=== PATIENT | male | born 2005 | race Caucasian/White ===

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

== ENCOUNTER 2024-04-12 13:43 | Emergency (ER) | payer OTHER, SELFPAY ==
[2024-04-12 13:53] VITALS: BP 113/56; PULSE 72; RESP 12; TEMP 36.4; O2SAT 96
[2024-04-12 14:19] LABS: Add Manual Diff / Slide Review NO; Basophils Absolute Auto 0 /uL (0-100); Basophils Percent Auto 0.5 % (0-2); Eosinophils Absolute Auto 200 /uL (0-450); Eosinophils Percent Auto 2.7 % (2-4); Hematocrit 43.3 % (41-53); Hemoglobin 14.5 g/dL (13.5-17.5); Lymphocytes Absolute Auto 1600 /uL (1100-4500); Lymphocytes Percent Auto 28.2 % (25-40); Mean Corpuscular HGB Conc 33.4 % (30-36); Mean Corpuscular Hemoglobin 28.6 PG (26-34); Mean Corpuscular Volume 85.8 fL (80-100); Monocytes Absolute Auto 300 /uL (0-900); Monocytes Percent Auto 5.8 % (3-14); Neutrophils Absolute Auto 3500 /uL (1500-7000); Neutrophils Percent Auto 62.8 % (50-75); Platelet Count 205 X10^3/uL (150-400); Red Blood Cell Count 5.05 X10^6/uL (4.5-5.9); Red Cell Distribution Width 13.4 % (11.6-14.8); White Blood Cell Count 5.6 X10^3/uL (4.5-11.0)
[2024-04-12 14:19] LABS: Appearance Urine UA CLEAR; Bilirubin Urine UA 1+ (NEGATIVE); Color Urine UA YELLOW; Glucose Urine UA NEGATIVE (Negative); Ketones Urine UA TRACE (NEGATIVE); Leukocyte Esterase Urine UA NEGATIVE (NEGATIVE); Nitrite Urine UA NEGATIVE (Negative); Occult Blood Urine UA NEGATIVE (Negative); Protein Urine UA 1+ (Negative); Specific Gravity Urine UA 1.025 (1.000-1.035); Urobilinogen Urine UA 0.2 E.U./dL (0.2)
[2024-04-12 14:26] LABS: Bacteria Urine None Seen; Ictotest Urine Negative (Negative); RBC Urine 0-1/HPF (0-5/HPF); Squamous Epithelial Cell Urine 0-1 /HPF (0-5/HPF); Urine Volume 10mL (spun); WBC Urine 0-1/HPF (0-5/HPF)
[2024-04-12 14:27] LABS: Culture Indicated Urine Cult Not Indicated
[2024-04-12 14:28] LABS: Alanine Aminotransferase 18 IU/L (<50); Albumin 4.2 g/dL (3.5-5.0); Albumin Globulin Ratio 1.6 (1.0-2.8); Alkaline Phosphatase 56 U/L (38-126); Aspartate Aminotransferase 32 IU/L (17-59); BUN Creatinine Ratio 15.3 (6-22); Bilirubin Total 1.3 mg/dL (0.2-1.3); Blood Urea Nitrogen 13 mg/dL (9-20); Calcium 9.1 mg/dL (8.4-10.2); Carbon Dioxide 28 mmol/L (22-32); Chloride 106 mmol/L (98-107); Estimated Glomerular Filt Rate > 60 mL/min (>60); Globulin 2.7 g/dL (1.7-4.1); Glucose 98 mg/dL (70-100); HEMOLYSIS < 15 (0-50); Lipase 42 U/L (23-300); Potassium 4.2 mmol/L (3.4-5.1); Sodium 139 mmol/L (137-145); Total Protein 6.9 g/dL (6.3-8.2)
--- NOTE | 2024-04-12 15:05 | ED.ABDPAIN ---
HPI - Abdominal Pain General Chief Complaint: Abdominal Pain Stated Complaint: abd px Time Seen by Provider: 04/12/24 14:18 Source: patient Mode of arrival: Ambulatory History of Present Illness HPI narrative: Patient is a healthy 18-year-old male who presents today with left testicular pain. He reports over last 4 days he has had increased pain and some bulging. He denies any sort of injury. He says sitting down and resting actually helps however standing makes it feel worse. 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 He reports he was not currently sexually active he denies any redness or penile discharge. He has some minimal abdominal discomfort no real flank pain. Related Data Previous Rx's Medication Instructions Recorded doxycycline hyclate 100 mg tablet 100 mg PO BID #10 tabs 12/20/23 lactulose 20 gram/30 mL oral 20 g (30 mL) PO BID #300 mL 12/20/23 solution Allergies Allergy/AdvReac Type Severity Reaction Status Date / Time No Known Drug Allergies Allergy Verified 04/12/24 13:58 Patient History Medical History (Updated 04/12/24 @ 16:49 by Vanessa Krishnamurthy DO) Testis pain Depression Idiopathic scoliosis of thoracolumbar spine Pectus excavatum Vitiligo Social History marital status: unmarried,single Smoking Status: Never smoker alcohol intake: current caffeine: Yes Type(s) of exercise: aerobic frequency: 1-2 times per week duration: 60-90 minutes/day Smoking Status: Never smoker Exam Initial Vital Signs Initial Vital Signs: Vital Signs Temperature 97.6 F 04/12/24 13:53 Pulse Rate 72 04/12/24 13:53 Respiratory Rate 12 04/12/24 13:53 Blood Pressure 113/56 L 04/12/24 13:53 Pulse Oximetry 96 04/12/24 13:53 Oxygen Delivery Method Room Air 04/12/24 13:53 Course Orders Ordered: ED Orders 04/12/24 14:03 Chlamydia Gonorrhea PCR -URINE Stat Ictotest Urine Stat Urinalysis and Microscopic Stat 04/12/24 14:10 Complete Blood Count AUTO DIFF Stat Comprehensive Metabolic Panel Stat Lipase Stat 04/12/24 15:12 US scrotum Stat Discontinued Medications Ondansetron HCl (Ondansetron 4 Mg/2 Ml Inj) 4 mg IV NOW PRN PRN Reason: Nausea And Vomiting Ondansetron HCl (Ondansetron 4 Mg Odt) 4 mg PO NOW PRN PRN Reason: Nausea And Vomiting Vital Signs Vital signs: Vital Signs - 8 hr 04/12/24 13:53 04/12/24 16:58 04/12/24 17:03 Temperature 97.6 F 98.2 F 97.6 F Pulse Rate 72 86 Respiratory Rate 12 20 Blood Pressure 113/56 L 122/74 Pulse Oximetry 96 100 Oxygen Delivery Method Room Air Room Air MDM - Abdominal Pain Lab Data 04/12/24 14:10 04/12/24 14:10 Labs: Lab Results 04/12/24 04/12/24 Range/Units 14:03 14:10 WBC 5.6 (4.5-11.0) X10^3/uL RBC 5.05 (4.5-5.9) X10^6/uL Hgb 14.5 (13.5-17.5) g/dL Hct 43.3 (41-53) % MCV 85.8 (80-100) fL MCH 28.6 (26-34) PG MCHC 33.4 (30-36) % RDW 13.4 (11.6-14.8) % Plt Count 205 (150-400) X10^3/uL Neut % (Auto) 62.8 (50-75) % Lymph % (Auto) 28.2 (25-40) % [place] % (Auto) 5.8 (3-14) % Eos % (Auto) 2.7 (2-4) % Baso % (Auto) 0.5 (0-2) % Neut # (Auto) 3500 (5662-4940) /uL Lymph # (Auto) 1600 (2721-2885) /uL [place] # (Auto) 300 (0-900) /uL Eos # (Auto) 200 (0-450) /uL Baso # (Auto) 0 (0-100) /uL Sodium 139 (137-145) mmol/L Potassium 4.2 (3.4-5.1) mmol/L Chloride 106 (98-107) mmol/L Carbon Dioxide 28 (22-32) mmol/L BUN 13 (9-20) mg/dL Creatinine 0.85 (0.66-1.25) mg/dL Estimated GFR > 60 (>60) mL/min BUN/Creatinine Ratio 15.3 (6-22) Glucose 98 (70-100) mg/dL Calcium 9.1 (8.4-10.2) mg/dL Total Bilirubin 1.3 (0.2-1.3) mg/dL AST 32 (17-59) IU/L ALT 18 (<50) IU/L Alkaline Phosphatase 56 (38-126) U/L Total Protein 6.9 (6.3-8.2) g/dL Albumin 4.2 (3.5-5.0) g/dL Globulin 2.7 (1.7-4.1) g/dL Albumin/Globulin Ratio 1.6 (1.0-2.8) Lipase 42 (23-300) U/L Urine Color Yellow Urine Appearance Clear Urine pH 6.0 (4.5-8.0) Ur Specific [place] 1.025 (1.000-1.035) Urine Protein 1+ H (Negative) Urine Glucose (UA) Negative (Negative) g/dL Urine Ketones Trace H (NEGATIVE) Urine Occult Blood Negative (Negative) Urine Nitrate Negative (Negative) Urine Bilirubin 1+ H (NEGATIVE) Ur Bilirubin Confirm Negative (Negative) Urine Urobilinogen 0.2 (0.2) E.U./dL Ur Leukocyte Esterase Negative (NEGATIVE) Urine RBC 0-1/hpf (0-5/HPF) Urine WBC 0-1/hpf (0-5/HPF) Ur Squamous Epith Cells 0-1 /hpf (0-5/HPF) Urine Bacteria None seen (None) Ur Culture Indicated? Cult not indicated Vol Urine Centrifuged 10ml (spun) Ur Chlamydia DNA (PCR) Not detected N gonorrhoeae DNA (PCR) Not detected Imaging Data US scrotum: Radiologist's Impression: PROCEDURE: US SCROTUM INDICATIONS: left testicular pain TECHNIQUE: Real-time scanning was performed of the scrotum and testicles, with image documentation. Color and pulse Doppler interrogation was performed of both testicles. COMPARISON: [facility], , US SCROTUM, 12/20/2023, 17:46. FINDINGS: Right: Testicle is normal in size at 4.5 x 2 x 2.7 cm, and homogenous in echotexture. Epididymis is normal in overall size and morphology. No hydrocele or varicoceles. Overlying scrotal skin is normal in thickness. Left: Testicle is normal in size at 4.3 x 1.9 x 3 cm, and homogeneous in echotexture. Epididymis is normal in overall size and morphology. No hydrocele or varicoceles. Overlying scrotal skin is normal in thickness. Doppler: Color and pulse Doppler demonstrate normal and symmetric arterial flow in both testicles. No evidence of hernia in the left inguinal canal. IMPRESSION: No acute scrotal abnormality by ultrasound. MDM Narrative Medical decision making narrative: 18-year-old male presenting today with left testicular pain. No injury. On exam no hernia is appreciated no evidence of an infection. Low suspicion for testicular torsion. Urinalysis does not show any evidence of hematuria or infection. Negative for gonorrheae and chlamydia. Blood work reviewed overall reassuring. Ultrasound does not show any abnormality. Patient was here 12/16/2023 with intermittent testicular pain ultrasound was negative there as well. Discharge Plan Departure Patient Disposition: Home Clinical Impression: Pain in left testicle Instructions: DI for Testicular Pain Activity Restrictions/Additional Instructions: *You have been diagnosed with left testicular pain *What to do: At this time I do recommend supportive may be helpful. If you continue to have discomfort consider urology referral *Continue to take medications as directed Motrin 600 mg every 6 hours for [id number] pain Tylenol 1000 mg every 6 hours if needed for ivgp-[id number] pain *Follow up with your primary care provider in 2-3 days or call [phone] *Return to ER if you should have increasing pain nausea vomiting or any new, worsening or concerning symptoms Prescriptions: No Action lactulose 20 gram/30 mL solution 20 g PO BID Qty: 300 0RF doxycycline hyclate 100 mg tablet 100 mg PO BID Qty: 10 0RF Referrals: Miscellaneous,[facility] [Primary Care Provider] - Stand Alone Forms: Patient Portal/API/Survey
--- NOTE | 2024-04-12 15:12 | DI.US.S_ITS ---
PROCEDURE: US SCROTUM INDICATIONS: left testicular pain TECHNIQUE: Real-time scanning was performed of the scrotum and testicles, with image documentation. Color and pulse Doppler interrogation was performed of both testicles. COMPARISON: [facility], , US SCROTUM, 12/20/2023, 17:46. FINDINGS: Right: Testicle is normal in size at 4.5 x 2 x 2.7 cm, and homogenous in echotexture. Epididymis is normal in overall size and morphology. No hydrocele or varicoceles. Overlying scrotal skin is normal in thickness. Left: Testicle is normal in size at 4.3 x 1.9 x 3 cm, and homogeneous in echotexture. Epididymis is normal in overall size and morphology. No hydrocele or varicoceles. Overlying scrotal skin is normal in thickness. Doppler: Color and pulse Doppler demonstrate normal and symmetric arterial flow in both testicles. No evidence of hernia in the left inguinal canal. IMPRESSION: No acute scrotal abnormality by ultrasound. Dictated by: Vladimir Kapoor M.D. on 04/12/2024 at 15:18 Approved by: Vladimir Kapoor M.D. on 04/12/2024 at 15:19
[2024-04-12 16:58] VITALS: TEMP 36.8
[2024-04-12 17:03] VITALS: BP 122/74; PULSE 86; RESP 20; TEMP 36.4; O2SAT 100
[2024-04-12 18:26] LABS: Urine N gonorrhoeae NOT DETECTED
[2024-04-12 18:31] LABS: Urine Chlamydia NOT DETECTED
== END 2024-04-12 17:04 | disposition home or self-care (01) ==
PROVIDERS: Emergency Provider Emergency Medicine; Family Provider Pediatrics
DX: N50.812 Left testicular pain (principal)
CPT/HCPCS: 36415; 76870; 80053; 81001; 83690; 85025; 87491; 87591; 99283; 99284